=== PATIENT | male | born 1955 | race African-American/Black ===

== ENCOUNTER → 2021-02-02 00:10 | Outpatient (CLI) | payer BC, SELFPAY ==
[2021-02-02 19:28] LABS: SARS-CoV-2 RNA PCR Negative
== END ==
PROVIDERS: PCP Family Medicine; Visit Provider Internal Medicine Gastroenterology
DX: Z01.812 Encounter for preprocedural laboratory examination (principal); Z20.822 Contact with and (suspected) exposure to COVID-19
CPT/HCPCS: C9803; U0003; U0005

== ENCOUNTER 2021-02-05 00:12 | Day surgery (SDC) | payer BC, SELFPAY ==
[2021-01-23 13:50] VITALS: BMI 30.4
[2021-02-05 08:52] VITALS: BP 176/100; PULSE 86; RESP 18; TEMP 36.2; O2SAT 99; BMI 32.1
[2021-02-05] MEDS: LACTATED RINGERS 1,000 ML 150 ML IV CONT (09:01)
--- NOTE | 2021-02-05 10:01 | WPDANESEPPF ---
Anes - Initial Pre Proc Eval Procedure: Operation Date: 02/05/21 10:00 Proposed Procedures p Screening Colonoscopy - Luis Daniel Kellogg DO Date/Time: 02/05/21 10:01 Surgeon: Luis Daniel Kellogg DO Pre Op Diagnosis: neoplasm screening Patient Data Age: 65 Gender: M Height: 5 ft 8 in Weight: 95.9 kg Last Vital Signs Temp 97.2 F L 02/05/21 08:52 Pulse 86 02/05/21 08:52 Resp 18 02/05/21 08:52 BP 176/100 H 02/05/21 08:52 Pulse Ox 99 02/05/21 08:52 Allergies Allergy/AdvReac Type Severity Reaction Status Date / Time No Known Allergies Allergy Verified 02/05/21 08:51 Patient hx anesthesia problems: none Family hx anesthesia problems: none [facility] Past Medical History Medical History (Updated 02/05/21 @ 10:00 by Jd Bang MD) Healthy adult Overweight (BMI 25.0-29.9) Social History Social History Drinks per week: 6 Alcohol use details: BEER Substance use type: does not use Living arrangements: with family Gender identity (if verbalized by the patient): Male Spiritual care concerns: No Anes - Eval Final PreProcedure Day of Procedure 02/05/21 10:01 Patient weight: overweight Heart: regular rate and rhythm Lungs: clear to auscultation Airway: Mallampati scale class II Neurological: alert and oriented Last oral intake: >/= 8 hours ASA classification: II Emergent: no Anesthetic plan: proceed Anesthesia type and monitoring: general GIVS and standard monitoring Informed Consent: The patient's anesthetic plan and its attendant risks and benefits were discussed with the patient/family/POA. Questions were solicited and answers provided to the satisfaction of the patient/family/POA.
--- NOTE | 2021-02-05 10:16 | WPDGICN ---
GI Consult Note Consult date/time: 02/05/21 10:16 HPI: Reason for visit colonoscopy. Very pleasant gentleman is here request the primary physician. Impression: Screening colonoscopy. Recommendation: Colonoscopy. History: This very pleasant gentleman is negative GI review of systems. He is here for screening colonoscopy. Physical examination: General: very pleasant patient in no acute distress. HEENT: Head was normocephalic sclerae is clear mouth without masses neck was supple. Heart: Rate rhythm regular without S3 or S4. Lungs: CTA. Abdomen: Soft with no guarding or rigidity. Bowel sounds were active. Neurologic: Cranial nerves 2 through 12 intact. No focal defects. No clonus. Musculoskeletal system: Revealed no joint tenderness or swelling no muscle atrophy. Extremities: Reveal no significant edema. Skin: Warm and dry with normal turgor. Mental status: intact. Patient is alert and oriented. Review of Systems Review of Systems: All systems reviewed & are unremarkable except as noted in HPI and below PMFSH Past Medical History Medical History (Updated 02/05/21 @ 10:00 by Jd Bang MD) Healthy adult Overweight (BMI 25.0-29.9) Social History Social History Drinks per week: 6 Alcohol use details: BEER Substance use type: does not use Living arrangements: with family Gender identity (if verbalized by the patient): Male Spiritual care concerns: No Meds Home Medications and Allergies Allergies Allergy/AdvReac Type Severity Reaction Status Date / Time No Known Allergies Allergy Verified 02/05/21 08:51 Vital Signs Vital Signs - 24 hr 02/05/21 08:52 Temperature 36.2 C L Pulse Rate 86 Respiratory Rate 18 Blood Pressure 176/100 H Pulse Oximetry 99
[2021-02-05 10:45] VITALS: BP 128/78; PULSE 81; RESP 16; O2SAT 96
[2021-02-05 10:55] VITALS: BP 130/88; PULSE 68; RESP 21; O2SAT 99
[2021-02-05 11:05] VITALS: BP 136/91; PULSE 54; RESP 17; O2SAT 96
== END 2021-02-05 11:22 | disposition home or self-care (01) ==
PROVIDERS: PCP Family Medicine; Visit Provider Internal Medicine Gastroenterology
PROC: 0DJD8ZZ Inspection of Lower Intestinal Tract, Via Natural or Artificial Opening Endoscopic (ICD-10-PCS; CPT 45378; principal; 2021-02-05 10:00)
DX: Z12.11 Encounter for screening for malignant neoplasm of colon (principal); K57.30 Diverticulosis of large intestine without perforation or abscess without bleeding; K64.8 Other hemorrhoids
CPT/HCPCS: 45378; J2704; J7120